=== PATIENT | female | born 1965 | race Caucasian/White ===

== ENCOUNTER 2016-12-17 09:36 | Emergency (ER) | payer OTHER ==
[~2016-12-17] VITALS: Ht 157.5 cm; Wt 49.4 kg
[~2016-12-17 09:36] MED LIST: AMOX-CLAV400 MG/5 M PO; AMOXIL500 MG PO; AUGMENTIN 875 M1 TAB PO
[2016-12-17 09:40] VITALS: BP 122/77
--- NOTE | 2016-12-17 09:49 | ED THROAT/DENTAL COMPLAINT ---
History of Present Illness General Chief Complaint: Sore Throat, Dental Pain Stated Complaint: SWOLLEN/PAINFUL GLAND Source: patient, old records Exam Limitations: no limitations Vital Signs & Intake/Output Vital Signs & Intake/Output Vital Signs Date Time Temp Pulse Resp B/P Pulse O2 O2 Flow FiO2 Ox Delivery Rate 12/17 1000 99 Room Air 12/17 0940 96.3 86 16 122/77 99 Room Air Allergies Coded Allergies: NO KNOWN ALLERGIES (01/18/16) Reconcile Medications AMOXICILLIN/POTASSIUM CLAV (Augmentin 875-125 Tablet) 875 MG/125 MG TAB 1 TAB PO BID OTITIS MEDIA Amoxicillin/Potassium Clav (Augmentin 250-62.5 MG/5 Ml) 250 MG-62.5 MG/5 ML SUSP.RECON 10 ML PO BID pharyngitis Amoxicillin/Potassium Clav (Amox-Clav 400-57 MG/5 Ml Susp) 400 MG/5 ML SUSP.RECON 10 ML PO BID otitis media Triage Note: 51 Y/O FEMALE C/O PAINFUL SWOLLEN GLAND IN R SIDED NECK X 4 DAYS. AFEBRILE. Triage Nurses Notes Reviewed? yes Onset: Abrupt Duration: day(s): (4), constant Timing: recent history Injury Environment: home Severity: mild, moderate Severity Numbers: 5 No Modifying Factors: none Associated Symptoms: denies HPI: 51-year-old female with no medical history presents to emergency room complaining of a sore throat associated with painful swollen glands on the right side of her neck for the past 4 days. The patient denies any fever chills, no pain with swallowing no recent dental work, no congestion cough fever or chills. Positive sick contacts at home. She denies any rashes to her skin shortness of breath chest pain shortness of breath abdominal pain nausea vomiting or diarrhea (ALLEN DENIS) Past History Travel History Traveled to [place] past 21 day No Medical History Any Pertinent Medical History? see below for history Neurological: NONE EENT: otitis media Cardiovascular: NONE Respiratory: NONE Gastrointestinal: NONE Hepatic: NONE Renal: NONE Musculoskeletal: NONE Psychiatric: NONE Endocrine: NONE Blood Disorders: NONE Cancer(s): NONE CONTACT REPRESENTATIVE/Reproductive: NONE Surgical History Surgical History: non-contributory Psychosocial History What is your primary language Bahamian Tobacco Use: Current Daily Use Daily Tobacco Use Amount/Type: => 5 Cigarettes daily Family History Hx Contributory? No (ALLEN DENIS) Review of Systems Review of Systems Constitutional: Reports: see HPI. All Other Systems: Reviewed and Negative Comments Review of systems: See HPI, All other systems negative. Constitutional, no chills no fever, no malaise HEENT: No visual changes sore throat no congestion, no ear pain Cardiovascular: No chest pain , no palpitation Skin, no jaundice no rashes, no change in skin Respiratory: No dyspnea no cough no sputum GI: No nausea no vomiting, no diarrhea, : No dysuria No hematuria, no frequency, no discharge Muscle skeletal: No joint pain, no joint swelling, no back pain Neurologic: no headache Psych: No stress Heme/endocrine: No bruising no bleeding Immunology: No lymphadenopathy (ALLEN DENIS) Physical Exam Physical Exam General Appearance: well developed/nourished, no apparent distress, alert, awake Mouth/Throat: pharynx with mild erythema no exudate Comments: Well-developed well-nourished patient in no apparent distress. Head/Face: Atraumatic, no maxillary/frontal sinus tenderness, no facial swelling Eyes: PERRL, EOMI, no conjunctival injection. No nystagmus Ear:External auditory canal and Tympanic membranes clear, no erythema, no FB. Nose: atraumatic.Normal inspection: No bleeding, no septal hematoma Throat: Moist mucous membranes.Pharynx mild erythema no exudate. No stridor/ drooling or assymetry. No swelling or edema. Neck: Supple, (+) anterior right sided lymphadenopathy, FROM Back: FROM, Nontender Cardiovascular: Regular rate and rhythms no murmurs rubs or gallops, Respiratory: Chest nontender.There were no bony deformities, no asymmetry. No respiratory distress. Patient speaking in full complete sentences. Breath sounds clear to auscultation bilaterally: NO W/R/R Extremities: full range of motion Neuro: Alert and oriented x3 Skin: Warm & dry;No appreciable rash on exposed skin Psych: Mood affect normal, normal memory normal judgment. Core Measures ACS in differential dx? No Severe Sepsis Present: No Septic Shock Present: No (ALLEN DENIS) Progress Differential Diagnosis: epiglottitis, Ludwigs angina, odontogenic abscess, shemar- tonsillar abscess, stomatitis/gingivitis, strep pharyngitis, otitis, mono Plan of Care: Discussed the patient need for supportive care, Motrin as needed for pains all or gargles prescription for Augmentin provided, advised follow-up with her primary care physician on Wednesday if symptoms persist they feel comfortable plan cleared for discharge (ALLEN DENIS) Departure Departure Time of Disposition: 956 Disposition: HOME OR SELF CARE Condition: Stable Clinical Impression Primary Impression: Pharyngitis Referrals: ABRAHAM KELLOGG,NANCY Santos (PCP/Family) Additional Instructions: Follow-up with your primary care physician, farrukh anthony Tylenol Motrin as needed. augmentin as directed, this prescription was sent to [facility]. Departure Forms: Customer Survey General Discharge Information Prescriptions: Current Visit Scripts Amoxicillin/Potassium Clav (Augmentin 250-62.5 MG/5 Ml) 10 ML PO BID #140 ML (ALLEN DENIS) PA/QUARTER TRIMMER Co-Sign Statement Statement: ED Attending supervision documentation- [] I saw and evaluated the patient. I have also reviewed all the pertinent lab results and diagnostic results. I agree with the findings and the plan of care as documented in the PA's/QUARTER TRIMMER's documentation. [X] I have reviewed the ED Record and agree with the PA's/QUARTER TRIMMER's documentation. [] Additions or exceptions (if any) to the PAs/QUARTER TRIMMER's note and plan are summarized below: [] (SHAWN INIGUEZ DO)
[2016-12-17] MEDS ORDERED: AUGMENTIN250 MG/51 PO (09:58)
== END 2016-12-17 10:04 ==
LOC: ERH 09:36
DX: J02.9 Acute pharyngitis, unspecified (principal); Z72.0 Tobacco use